=== PATIENT | female | born 1990 | race American Indian/Alaskan Native ===

== ENCOUNTER 2020-01-04 12:22 | Emergency (ER) | payer SELFPAY ==
[2020-01-04] MEDS ORDERED: FAMOTIDINE 20 MG TAB PO ONE (13:07)
[2020-01-04] MEDS ORDERED: HYOSCYAMINE SUBL 0.125 MG TAB SL ONE (13:07)
[2020-01-04] MEDS ORDERED: ALUM-MAG HYDROXIDE-SIMETHICONE 200-200-20MG/5ML ORAL LIQD 30 ML PO ONE (13:07)
[2020-01-04] MEDS ORDERED: SIMETHICONE 80 MG CHEW TAB PO ONE (13:07)
[2020-01-04 13:10] LABS: Bilirubin,Urine NEG (Negative); Blood,Urine NEG (Negative); Color,Urine Straw (Yellow); Mucus,Urine FEW /HPF; Protein,Urine <15 mg/dL mg/dL (Negative); Urobilinogen,Urine < 2.0 mg/dL (<2.0)
[2020-01-04 13:14] LABS: HCG Qualitative,Urine Negative (Negative)
[2020-01-04 13:27] LABS: Basophils % (Auto) 0.6 % (0.0-1.8); Eosinophils # (Auto) 0.1 K/mm3 (0.0-0.4); Eosinophils % (Auto) 1.9 % (0.0-4.3); Hematocrit 38.4 % (30.3-42.9); Hemoglobin 12.8 gm/dl (10.1-14.3); Lymphocytes # (Auto) 1.2 K/mm3 (1.2-5.4); Lymphocytes % (Auto) 20.1 % (13.4-35.0); Mean Corpuscular HGB Conc 33 % (30-34); Mean Corpuscular Volume 82 fl (79-97); Monocytes # (Auto) 0.4 K/mm3 (0.0-0.8); Platelet Count 223 K/mm3 (140-440); Red Blood Count 4.67 M/mm3 (3.65-5.03); Red Cell Distribution Width 14.6 % (13.2-15.2)
[2020-01-04 13:43] LABS: Alanine Aminotransferase 7 units/L (7-56); Albumin 4.2 g/dL (3.9-5); Blood Urea Nitrogen 14 mg/dL (7-17); Calcium 9.3 mg/dL (8.4-10.2); Hemolysis Index 12
[2020-01-04 13:45] LABS: BUN/Creatinine Ratio 23
--- NOTE | 2020-01-04 13:52 | Emergency Department Report ---
ED General Adult HPI - General Chief complaint: Chest Pain Stated complaint: ABD PAIN, CHEST PAIN Time Seen by Provider: 01/04/20 12:57 Source: patient Mode of arrival: Ambulatory Limitations: No Limitations - History of Present Illness Initial comments: Patient is a 29-year-old female presents emergency room with complaints of upper abdominal pain that began yesterday. She states that she has had increased gas. She states that she also has substernal chest pain which is worse with movement. She denies any nausea, vomiting, diarrhea, fever, urinary symptoms, shortness of breath, radiation of the pain, cough. She denies any sick contacts, recent travel, recent surgery, hormone use, immobilization. She has a past medical history of hypothyroidism. No allergies to medications. Last menstrual cycle December 07. - Related Data Previous Rx's Medication Instructions Recorded Last Taken Type Famotidine [Pepcid] 40 mg PO QHS #30 tablet 01/04/20 Unknown Rx Sucralfate [Carafate] 1 gm PO ACHS 7 Days #21 tablet 01/04/20 Unknown Rx Allergies Allergy/AdvReac Type Severity Reaction Status Date / Time No Known Allergies Allergy Unverified 01/04/20 12:31 ED Review of Systems ROS: Stated complaint: ABD PAIN, CHEST PAIN Other details as noted in HPI Comment: All other systems reviewed and negative ED Past Medical Hx - Past Medical History Previous Medical History?: Yes Additional medical history: Thyroid - Surgical History Past Surgical History?: No - Social History Smoking Status: Never Smoker Substance Use Type: Marijuana - Medications Home Medications: Home Medications Medication Instructions Recorded Confirmed Last Taken Type Famotidine [Pepcid] 40 mg PO QHS #30 tablet 01/04/20 Unknown Rx Sucralfate [Carafate] 1 gm PO ACHS 7 Days #21 tablet 01/04/20 Unknown Rx ED Physical Exam - General Limitations: No Limitations General appearance: alert, in no apparent distress - Head Head exam: Present: atraumatic, normocephalic - Eye Eye exam: Present: normal appearance - ENT ENT exam: Present: mucous membranes moist - Respiratory Respiratory exam: Present: normal lung sounds bilaterally. Absent: respiratory distress, wheezes, rales, rhonchi, stridor, accessory muscle use, decreased breath sounds, prolonged expiratory - Cardiovascular Cardiovascular Exam: Present: regular rate, normal rhythm, normal heart sounds. Absent: systolic murmur, diastolic murmur, rubs, gallop - GI/Abdominal GI/Abdominal exam: Present: soft, tenderness (mild LUQ), normal bowel sounds. Absent: distended, guarding, rebound, rigid - Neurological Exam Neurological exam: Present: alert, oriented X3 - Psychiatric Psychiatric exam: Present: normal affect, normal mood - Skin Skin exam: Present: warm, dry, intact ED Course Vital Signs 01/04/20 01/04/20 12:31 14:09 Temperature 98.7 F Pulse Rate 90 88 Respiratory 17 16 Rate Blood Pressure 111/61 Blood Pressure 122/74 [Left] O2 Sat by Pulse 98 99 Oximetry ED Medical Decision Making - Lab Data Result diagrams: 01/04/20 13:16 01/04/20 13:16 Lab Results 01/04/20 01/04/20 01/04/20 Range/Units 13:00 13:16 13:16 WBC 6.0 (4.5-11.0) K/mm3 RBC 4.67 (3.65-5.03) M/mm3 Hgb 12.8 (10.1-14.3) gm/dl Hct 38.4 (30.3-42.9) % MCV 82 (79-97) fl MCH 27 L (28-32) pg MCHC 33 (30-34) % RDW 14.6 (13.2-15.2) % Plt Count 223 (140-440) K/mm3 Lymph % (Auto) 20.1 (13.4-35.0) % [place] % (Auto) 7.0 (0.0-7.3) % Eos % (Auto) 1.9 (0.0-4.3) % Baso % (Auto) 0.6 (0.0-1.8) % Lymph # 1.2 (1.2-5.4) K/mm3 [place] # 0.4 (0.0-0.8) K/mm3 Eos # 0.1 (0.0-0.4) K/mm3 Baso # 0.0 (0.0-0.1) K/mm3 Seg Neutrophils % 70.4 H (40.0-70.0) % Seg Neutrophils # 4.2 (1.8-7.7) K/mm3 Sodium 139 (137-145) mmol/L Potassium 4.2 (3.6-5.0) mmol/L Chloride 106.6 (98-107) mmol/L Carbon Dioxide 22 (22-30) mmol/L Anion Gap 15 mmol/L BUN 14 (7-17) mg/dL Creatinine 0.6 (0.6-1.2) mg/dL Estimated GFR > 60 ml/min BUN/Creatinine Ratio 23 % Glucose 114 H (65-100) mg/dL Calcium 9.3 (8.4-10.2) mg/dL Total Bilirubin 0.30 (0.1-1.2) mg/dL AST 12 (5-40) units/L ALT 7 (7-56) units/L Alkaline Phosphatase 68 (35-129) units/L Total Protein 6.8 (6.3-8.2) g/dL Albumin 4.2 (3.9-5) g/dL Albumin/Globulin Ratio 1.6 % Lipase 23 (13-60) units/L Urine Color Straw (Yellow) Urine Turbidity Clear (Clear) Urine pH 6.0 (5.0-7.0) Ur Specific [place] 1.014 (1.003-1.030) Urine Protein <15 mg/dl (Negative) mg/dL Urine Glucose (UA) Neg (Negative) mg/dL Urine Ketones Neg (Negative) mg/dL Urine Blood Neg (Negative) Urine Nitrite Neg (Negative) Urine Bilirubin Neg (Negative) Urine Urobilinogen < 2.0 (<2.0) mg/dL Ur Leukocyte Esterase Neg (Negative) Urine WBC (Auto) 1.0 (0.0-6.0) /HPF Urine RBC (Auto) 3.0 (0.0-6.0) /HPF U Epithel Cells (Auto) < 1.0 (0-13.0) /HPF Urine Mucus Few /HPF Urine HCG, Qual Negative (Negative) - EKG Data EKG shows normal: sinus rhythm, axis, intervals, QRS complexes, ST-T waves Rate: normal - Medical Decision Making Patient is a 29-year-old female presents emergency room with complaints of upper abdominal pain that began yesterday. She states that she has had increased gas. She states that she also has substernal chest pain which is worse with movement. She denies any nausea, vomiting, diarrhea, fever, urinary symptoms, shortness of breath, radiation of the pain, cough. She denies any sick contacts, recent travel, recent surgery, hormone use, immobilization. She has a past medical history of hypothyroidism. No allergies to medications. Last menstrual cycle December 07. Vitals are normal. On exam mild left upper quadrant tenderness palpation, no guarding, no rebound, no rigidity, no distention, no peritoneal signs, normal bowel sounds. EKG ordered prior to my examination is within normal limits. Labs are normal. UA is within normal limits. Urine is negative. Patient given Maalox, Pepcid, Levsin, simethicone and symptoms completely improved. Examination appears most consistent with acid reflux versus mild gastritis. Patient does not have any cardiac risk factors, she has no history of hypertension, diabetes, high cholesterol, she is a non- smoker, she denies any family cardiac history. Do not suspect ACS. Patient given prescription for Carafate and Pepcid. Advised patient Please take medication as prescribed. Please increase your water intake. Please follow the diet for gastritis and acid reflux. Follow-up with your primary care doctor for reexamination. Return to emergency room for any new or worsening symptoms. - Differential Diagnosis GERD, PUD, gastritis, gas pain Critical care attestation.: If time is entered above; I have spent that time in minutes in the direct care of this critically ill patient, excluding procedure time. ED Disposition Clinical Impression: Upper abdominal pain, Chest pain, atypical Disposition: [id number] TO HOME OR SELFCARE Is pt being admited?: No Does the pt Need Aspirin: No Condition: Stable Instructions: Gastritis (ED), Diet for Ulcers and Gastritis (ED), Gastroesophageal Reflux Disease (ED) Additional Instructions: Please take medication as prescribed. Please increase your water intake. Please follow the diet for gastritis and acid reflux. Follow-up with your primary care doctor for reexamination. Return to emergency room for any new or worsening symptoms. Prescriptions: Famotidine [Pepcid] 40 mg PO QHS #30 tablet Sucralfate [Carafate] 1 gm PO ACHS 7 Days #21 tablet Referrals: your, primary care doctor [Other] - 2-3 Days Time of Disposition: 14:00 Print Language: CZECH
[2020-01-04 14:09] VITALS: BP 122/74
== END 2020-01-04 14:17 | disposition home or self-care (01) ==
LOC: ED 12:22
DX: R10.10 Upper abdominal pain, unspecified (principal); R07.89 Other chest pain; E03.9 Hypothyroidism, unspecified; F12.90 Cannabis use, unspecified, uncomplicated; Z79.899 Other long term (current) drug therapy
CPT/HCPCS: 36415; 80053; 81001; 81025; 83690; 85025; 93005; 99283